=== PATIENT | female | born 1980 | race Caucasian/White ===

== ENCOUNTER 2018-08-29 16:27 | Emergency (ER) | payer MEDICAID ==
[~2018-08-29] VITALS: Ht 167.6 cm; Wt 81.8 kg
[2018-08-29 16:39] VITALS: Ht 167.6 cm; Wt 81.8 kg
[2018-08-29] MEDS ORDERED: DEXILANT60 MG PO (16:41)
[2018-08-29] MEDS ORDERED: CELEXA40 MG PO (16:42)
[2018-08-29] MEDS ORDERED: LINZESS290 MCG PO (16:42)
[2018-08-29] MEDS ORDERED: VALTREX500 MG PO (16:42)
[2018-08-29] MEDS ORDERED: EFFEXOR XR150 MG PO (16:42)
[2018-08-29] MEDS ORDERED: VISTARIL25 MG PO (16:43)
[2018-08-29] MEDS ORDERED: BUSPAR10 MG PO (16:43)
[2018-08-29] MEDS ORDERED: MINIPRESS 5 MG C5 MG PO (16:45)
[2018-08-29 17:32] LABS: BASOPHILS 0.8 % (0-2); EOSINOPHILS 2.2 % (0-7); HEMATOCRIT 29.8 % (36.0-48.0); HEMOGLOBIN 8.7 g/dL (12-16); IMMATURE GRANULOCYTES 0.2 % (0-5); LYMPHOCYTES 24.4 % (15-50); MCH 20.5 pg (26.0-34.0); MCHC 29.2 g/dL (31.0-37.0); MCV 70.1 fL (80.0-100.0); MEAN PLATELET VOLUME 9.1 fL (7.4-10.4); MONOCYTES 8.9 % (2-11); NEUTROPHILS 63.5 % (40-80); PLATELET COUNT 339 10x3/uL (130-400); RBC 4.25 10x6/uL (4.00-5.40); RDW 18.9 % (11.5-14.5); WBC 6.3 10x3/uL (4.8-10.8)
[2018-08-29 17:42] LABS: ALKALINE PHOSPHATASE 64 U/L (46-116); ALT (SGPT) 20 U/L (10-68); BILIRUBIN - TOTAL 0.27 mg/dL (0.2-1.3); CALC OSMOLALITY 275 mosm/kg (275-300); CALCIUM 8.7 mg/dL (8.5-10.1); CARBON DIOXIDE 22.4 mmol/L (21.0-32.0); CHLORIDE - SERUM 102 mmol/L (98-107); GLUCOSE 93 mg/dL (74-106); PROTEIN - SERUM 7.3 g/dL (6.4-8.2); SODIUM 138 mmol/L (136-145); UREA NITROGEN 13 mg/dL (7-18); eGFR NON AFRICAN AMERICAN 66 mL/min (90-120)
[2018-08-29 18:11] LABS: CKMB 1.1 U/L (0.0-3.6); CREATINE KINASE 120 UL (21-215); TROPONIN-I < 0.017 ng/mL (0.000-0.060)
[2018-08-29 20:45] LABS: % SATURATION 3 % (15-55); IRON 16 ug/dl (35-150); TOTAL IRON BIND CAPACITY 479 ug/dl (260-445)
[2018-08-29 20:46] LABS: UNSAT IRON BIND CAPACITY 463 ug/dl (150-375)
[2018-08-29] MEDS ORDERED: TORADOL10 MG PO (22:07)
[2018-08-29 22:29] VITALS: BP 145/89
== END 2018-08-29 22:29 | disposition home or self-care (01) ==
LOC: D.ER 16:27
PROVIDERS: Emergency Medicine; Family Medicine
DX: D64.9 Anemia, unspecified (principal); E61.1 Iron deficiency; K44.9 Diaphragmatic hernia without obstruction or gangrene; R51 Headache; R06.00 Dyspnea, unspecified; F17.200 Nicotine dependence, unspecified, uncomplicated

== ENCOUNTER 2018-09-03 15:51 | Emergency (ER) | payer MEDICAID ==
[~2018-09-03] VITALS: Ht 167.6 cm; Wt 81.8 kg
[~2018-09-03 15:51] MED LIST: BUSPAR10 MG PO; CELEXA40 MG PO; DEXILANT60 MG PO; EFFEXOR XR150 MG PO; LINZESS290 MCG PO; MINIPRESS 5 MG C5 MG PO; TORADOL10 MG PO; VALTREX500 MG PO; VISTARIL25 MG PO
[2018-09-03 15:54] VITALS: Ht 167.6 cm; Wt 81.8 kg
[2018-09-03] MEDS ORDERED: TRAZODONE HCL100 MG PO (15:57)
[2018-09-03 19:13] VITALS: BP 124/84
== END 2018-09-03 19:15 | disposition home or self-care (01) ==
LOC: D.ER 15:51
DX: S09.90XA Unspecified injury of head, initial encounter (principal); Y04.2XXA Assault by strike against or bumped into by another person, initial encounter; Y93.89 Activity, other specified; Y92.019 Unspecified place in single-family (private) house as the place of occurrence of the external cause; S16.1XXA Strain of muscle, fascia and tendon at neck level, initial encounter

== ENCOUNTER 2018-11-11 13:55 | Emergency (ER) | payer MEDICAID ==
[~2018-11-11] VITALS: Ht 167.6 cm; Wt 81.8 kg
[~2018-11-11 13:55] MED LIST changes: +TRAZODONE HCL100 MG PO
[2018-11-11 14:03] VITALS: Ht 167.6 cm; Wt 81.8 kg
[2018-11-11] MEDS ORDERED: SEROQUEL200 MG PO (14:06)
[2018-11-11 14:58] LABS: ALBUMIN 3.6 g/dL (3.4-5.0); ALKALINE PHOSPHATASE 82 U/L (46-116); ALT (SGPT) 17 U/L (10-68); AMYLASE - SERUM 69 U/L (25-115); BILIRUBIN - TOTAL 0.12 mg/dL (0.2-1.3); CALC OSMOLALITY 275 mosm/kg (275-300); CALCIUM 8.6 mg/dL (8.5-10.1); CARBON DIOXIDE 28.2 mmol/L (21.0-32.0); CHLORIDE - SERUM 103 mmol/L (98-107); CREATININE - SERUM 0.9 mg/dL (0.6-1.3); GLUCOSE 84 mg/dL (74-106); LIPASE 147 U/L (73-393); POTASSIUM - SERUM 4.2 mmol/L (3.5-5.1); PROTEIN - SERUM 7.1 g/dL (6.4-8.2); SODIUM 139 mmol/L (136-145); UREA NITROGEN 10 mg/dL (7-18); eGFR NON AFRICAN AMERICAN 75 mL/min (90-120)
[2018-11-11 15:11] LABS: HEMATOCRIT 42.7 % (36.0-48.0); HEMOGLOBIN 13.7 g/dL (12-16); MCH 28.4 pg (26.0-34.0); MCHC 32.1 g/dL (31.0-37.0); MCV 88.4 fL (80.0-100.0); MEAN PLATELET VOLUME 10.5 fL (7.4-10.4); RBC 4.83 10x6/uL (4.00-5.40); WBC 5.4 10x3/uL (4.8-10.8)
[2018-11-11 15:19] LABS: PLATELET COUNT 254 10x3/uL (130-400)
[2018-11-11 16:01] LABS: LYMPHOCYTES 21 % (15-50); MONOCYTES 1 % (2-11); NEUTROPHILS 78 % (40-80); PLATELET ESTIMATE NORMAL
[2018-11-11 17:13] VITALS: BP 116/70
[2018-11-11 17:18] LABS: APPEARANCE CLEAR (CLEAR); COLOR YELLOW (YELLOW); SPECIFIC GRAVITY 1.005 (1.005-1.020)
[2018-11-11 17:19] LABS: BILIRUBIN NEGATIVE (NEGATIVE); GLUCOSE NEGATIVE (NEGATIVE); KETONE NEGATIVE (NEGATIVE); NITRITE NEGATIVE (NEGATIVE); PROTEIN NEGATIVE (NEGATIVE); UROBILINOGEN NORMAL (NORMAL)
== END 2018-11-11 17:13 | disposition home or self-care (01) ==
LOC: D.ER 13:55
PROVIDERS: Emergency Medicine
DX: R10.9 Unspecified abdominal pain (principal); F32.9 Major depressive disorder, single episode, unspecified; K21.9 Gastro-esophageal reflux disease without esophagitis